=== PATIENT | female | born 1955 | race Caucasian/White ===

== ENCOUNTER 2018-04-08 20:00 | Emergency (ER) | payer BC ==
[2018-04-08] MEDS ORDERED: Amoxicillin/Potassium Clav 875 MG TAB ONE (20:28)
[2018-04-08] MEDS ORDERED: FOMEPIZOLE ONE (20:28)
[2018-04-08] MEDS ORDERED: Ibuprofen 200 MG TAB PO SCH (20:45)
--- NOTE | 2018-04-08 21:07 | RAD ---
CHEST TWO VIEWS: 04/08/18 No prior films are available for comparison. The heart is normal in size. There is no vascular congestion or edema. No pleural effusions are seen. While there is no major lobar infiltrate, some of the lung markings in the right base medially seem a little coarse. I cannot exclude a minimal infiltrate here. The lungs are otherwise clear. Minor dege nerative changes are seen in the spine. IMPRESSION: Equivocal coarsening of the right basilar lung markings. A minimal infiltrate is not excluded. Code T POS: HOME
== END 2018-04-08 20:45 | disposition home or self-care (01) ==
LOC: BURERS 20:00
DX: J06.9 Acute upper respiratory infection, unspecified (principal); E10.9 Type 1 diabetes mellitus without complications; E78.5 Hyperlipidemia, unspecified; I10 Essential (primary) hypertension; Z79.899 Other long term (current) drug therapy
CPT/HCPCS: 71046; J1451